=== PATIENT | male | born 1980 | race African-American/Black ===

== ENCOUNTER 2023-09-29 11:48 | Emergency (ER) | payer OTHER ==
[2023-09-29 11:54] VITALS: BP 134/74; PULSE 64; RESP 20; TEMP 97.9; BMI 26.6
[2023-09-29] MEDS: IBUPROFEN 600 MG TABLET (FP) PO ONE (12:22)
== END 2023-09-29 13:55 | disposition home or self-care (01) ==
LOC: JERFT 11:48
DX: S97.81XA Crushing injury of right foot, initial encounter (principal); M79.671 Pain in right foot; S91.351A Open bite, right foot, initial encounter; W54.0XXA Bitten by dog, initial encounter
CPT/HCPCS: 73610-TC-RT-FY; 73630-TC-RT-FY; 99283-25